=== PATIENT | male | born 2000 | race Caucasian/White ===

== ENCOUNTER 2019-04-27 14:33 | Outpatient (CLI) | payer OTHER ==
[2019-04-27 15:42] LABS: Mean Corpuscular HGB CONC 33.2 g/dL (32.0-36.0); Mean Corpuscular Hemoglobin 28.8 pg (25.0-35.0); Mean Corpuscular Volume 86.6 fL (78.0-98.0); Mean Platelet Volume 8.4 fL (7.4-10.4); Platelet Count 202 thou/uL (130-400); RBC Distribution Width 12.3 % (11.5-14.5); Red Blood Cell (RBC) Count 5.57 mill/uL (4.00-5.20); White Blood Cell (WBC) Count 5.6 thou/uL (4.8-10.8)
[2019-04-27 15:49] LABS: PTT 30.8 SEC (22.9-36.1); Prothrombin Time 13.6 SEC (12.0-14.7)
[2019-04-27 15:57] LABS: Bacteria/HPF None Seen HPF (None Seen); Bilirubin Negative (Negative); Blood, Urine Negative (Negative); Clarity Clear (Clear); Glucose, Urine (Dipstick) Normal (Negative); Leukocyte Negative Leu/uL (Negative); Nitrite Negative (Negative); Protein, Urine (Dipstick) 20 mg/dL (Neg-Trace); RBC/HPF 0-3 HPF (0-3); Squamous Epithelial 0-3 HPF (0-3); Urobilinogen 6 mg/dL (Less than 2); WBC/HPF 0-3 HPF (0-3)
[2019-04-27 16:03] LABS: Anion Gap 13 mmol/L (10-20); BUN (Urea Nitrogen) 9 mg/dL (8.4-21.0); Calc. Creatinine Clearance 0 mL/min (70-130); Carbon Dioxide 26 mmol/L (22-29); Chloride 105 mmol/L (98-107); Estimated GFR-MDRD Greater than 90; Glucose 89 mg/dL (70-105); Potassium 4.1 mmol/L (3.5-5.1); Sodium 140 mmol/L (136-145)
== END 2019-04-27 14:34 | disposition home or self-care (01) ==
LOC: LABBT 14:33
PROVIDERS: ATTEND Urology
DX: Z01.812 Encounter for preprocedural laboratory examination (principal); N44.00 Torsion of testis, unspecified
CPT/HCPCS: 80048; 81001; 85027; 85610; 85730; 87086

== ENCOUNTER → 2019-04-28 | Day surgery (SDC) | payer OTHER ==
[2019-04-27 15:10] VITALS: BMI 20.7
[~2019-04-28] MED LIST: Bacitracin Zinc Ointment 30 gm TUBE ONE; Bupivacaine 0.25% HCL 30 ML VIAL ONE; CEFAZOLIN 1 GM VIAL ONE; Fentanyl 100 MCG/2 ML VIAL ONE; HYDROcodone/Acetaminophen 5/325 mg Tablet ONE; HYDROmorphone 2 MG/ML VIAL ONE; Meperidine HCl/PF 25 MG/ML VIAL ONE; Midazolam HCl 2 mg/2 ml Vial ONE; Neomycin-Polymyxin 1 ML AMP ONE; Sodium Chloride 0.9% 100 ML ONE
--- NOTE | 2019-04-28 15:16 | OP ---
DATE OF PROCEDURE: 04/28/2019 PREOPERATIVE DIAGNOSIS: A 18-year-old male with history of testicular torsion, status post manual reduction with resolution of discomfort. POSTOPERATIVE DIAGNOSIS: A 18-year-old male with history of testicular torsion, status post manual reduction with resolution of discomfort. PROCEDURES PERFORMED: Bilateral orchidopexy, scrotal exploration. ANESTHESIA: General. COMPLICATIONS: None apparent. ESTIMATED BLOOD LOSS: Minimal. IV FLUIDS: Approximately 1 L. INDICATIONS FOR PROCEDURE AND HISTORY: Mr. Wolff is a 18-year-old male, who presented to the emergency room few days ago due to acute testicular discomfort, found to have testicular torsion due to abnormal testicular lie. He underwent manual detorsion by ER staff and had complete resolution of his discomfort. Subsequent scrotal ultrasound demonstrated bilateral symmetric flow. He relates similar event occurring few years ago and presents today for bilateral orchidopexy. Risks and complications including, but not limited to, bleeding, pain, infection , hydrocele, hematocele, orchitis, testicular atrophy, injury to adjacent structures, recurrence of testicular torsion was reviewed with him in detail. 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 Questions encouraged and answered and desired to proceed. DESCRIPTION OF PROCEDURE: After an informed consent was signed, the patient was taken to the operating room, placed in a supine position. Bilateral ALESSANDRA hose, SCDs, and broad-spectrum antibiotics were provided. We made a median raphae scrotal incision with a 15 blade. The dartos fascia was opened to the limits of skin incision. We then entered the left hemiscrotum. The tunica vaginalis was taken down and the testicle was inspected. There was no evidence of atrophy or perfusion defects. We performed a three-point fixation using 4-0 Prolene on a tapered needle. The medial aspect traversed the septum of the scrotum. We then proceeded to complete this on the right side. Good hemostasis was remained. At the end of the procedure, irrigation was performed using irrigation. The dartos fascia was reapproximated using 3-0 chromic. Skin was closed with 3-0 chromic in a vertical mattress fashion. Bacitracin ointment was applied and he tolerated the procedure well. Upon inspecting the left hemiscrotum, one of the fixation sutures on left did traverse the skin very superficially about 1mm. I did make the decision to excise this suture. Inspection of the scrotum demonstrated good fixation bilaterally. scrotal dressing was applied and he tolerated the procedure well. [facility]; Jackson 5/325, #20 and Deepa. Job ID: [id number] [facility]
== END ==
LOC: SDC 09:23
PROVIDERS: ATTEND Urology
PROC: 0VSB0ZZ Reposition Left Testis, Open Approach (ICD-10-PCS; principal; 2019-04-28)
DX: N50.812 Left testicular pain (principal); N50.811 Right testicular pain; F17.290 Nicotine dependence, other tobacco product, uncomplicated; Z87.438 Personal history of other diseases of male genital organs; Z88.5 Allergy status to narcotic agent
CPT/HCPCS: J0690; J1170; J2175; J2250; J3010; J3490; S0020